=== PATIENT | female | born 1995 ===

== ENCOUNTER 2016-09-28 11:38 | Emergency (ER) | payer OTHER, MEDICAID ==
[2016-09-28 11:43] VITALS: RESP 16
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
[2016-09-28 13:24] VITALS: BP 108/65; PULSE 80; TEMP 98.2
[2016-09-28 13:33] VITALS: O2SAT 100
--- NOTE | 2016-09-28 14:21 | RAD ---
Right ankle three views History: Pain and trauma. Comparison: None available. Findings: No evidence for acute displaced fracture or dislocation. Ankle mortise maintained. Talar dome intact. No significant soft tissue swelling. Impression: Negative acute. If pain persists, consider MRI.
== END 2016-09-28 13:24 | disposition home or self-care (01) ==
LOC: C.ER 11:38
DX: S93.401A Sprain of unspecified ligament of right ankle, initial encounter (principal); V03.10XA Pedestrian on foot injured in collision with car, pick-up truck or van in traffic accident, initial encounter; Y92.410 Unspecified street and highway as the place of occurrence of the external cause

== ENCOUNTER 2017-12-28 14:04 | Emergency (ER) | payer MEDICAID ==
[2017-12-28 14:13] VITALS: BMI 18.7
[2017-12-28 14:27] VITALS: BP 101/68; PULSE 90; RESP 18; TEMP 97.7; O2SAT 98
--- NOTE | 2017-12-28 14:42 | C.PDOC ---
History Of Present Illness 22 year old female presents to the ED c/o body aches, throat pain and fever for the past 3 days. Patient states she has been taking DayQuil, last time she took it was today at noon. Patient denies nausea, vomit, diarrhea, rash, recent travel, sick contacts. Time Seen by Provider: 12/28/17 14:21 Chief Complaint (Nursing): Flu-like Symptoms History Per: Patient History/Exam Limitations: no limitations Onset/Duration Of Symptoms: Days (3) Current Symptoms Are (Timing): Still Present Location Of Pain: Throat, Diffuse Myalgias Sick Contacts (Context): None Associated Symptoms: Fever, Sore Throat, Myalgias Ear Symptoms: Bilateral: None Recent travel outside of the [place]: No Additional History Per: Patient Past Medical History Reviewed: Historical Data, Nursing Documentation, Vital Signs Vital Signs: Last Vital Signs Temp 97.7 F 12/28/17 14:13 Pulse 90 12/28/17 14:13 Resp 18 12/28/17 14:13 BP 101/68 12/28/17 14:13 Pulse Ox 98 12/28/17 14:41 - Medical History PMH: No Chronic Diseases Surgical History: No Surg Hx Family History: States: Unknown Family Hx - Social History Hx Alcohol Use: No Hx Substance Use: No - Immunization History Hx Tetanus Toxoid Vaccination: No Hx Influenza Vaccination: No Hx Pneumococcal Vaccination: No Review Of Systems Constitutional: Positive for: Fever. Negative for: Chills Eyes: Negative for: Vision Change ENT: Positive for: Throat Pain. Negative for: Nose Discharge, Nose Congestion Cardiovascular: Negative for: Chest Pain Respiratory: Negative for: Cough, Shortness of Breath Gastrointestinal: Negative for: Nausea, Vomiting, Abdominal Pain Skin: Negative for: Rash Neurological: Negative for: Weakness, Numbness Physical Exam - Physical Exam Appears: Non-toxic, No Acute Distress Skin: Normal Color, Warm, Dry Head: Atraumatic, Normacephalic Eye(s): bilateral: Normal Inspection Ear(s): Bilateral: Normal Oral Mucosa: Moist Throat: Erythema, Exudate Neck: Normal ROM, Supple, Other (submandibular nodes) Chest: Symmetrical Cardiovascular: Rhythm Regular, No Murmur Respiratory: Normal Breath Sounds, No Rales, No Rhonchi, No Wheezing Extremity: Normal ROM, No Tenderness, No Swelling Neurological/Psych: Oriented x3, Normal Speech Gait: Steady ED Course And Treatment O2 Sat by Pulse Oximetry: 98 (ON RA) Pulse Ox Interpretation: Normal Disposition Counseled Patient/Family Regarding: Diagnosis, Need For Followup, Rx Given - Disposition Referrals: [facility] [Outside] [facility] [Outside] Disposition: HOME/ ROUTINE Disposition Time: 14:40 Condition: GOOD Prescriptions: Amoxicillin [Amoxil 500 mg Cap] 500 mg PO BID #20 cap Ibuprofen [Motrin] 400 mg PO QID #30 tab Instructions: Sore Throat, Adult (DC) Forms: [employer] (Icelandic), Work Excuse - Clinical Impression Clinical Impression: Acute pharyngitis - Scribe Statement The provider has reviewed the documentation as recorded by the Scribe Tu Gong All medical record entries made by the Scribe were at my direction and personally dictated by me. I have reviewed the chart and agree that the record accurately reflects my personal performance of the history, physical exam, medical decision making, and the department course for this patient. I have also personally directed, reviewed, and agree with the discharge instructions and disposition.
== END 2017-12-28 14:56 | disposition home or self-care (01) ==
LOC: C.ER 14:04
DX: J02.9 Acute pharyngitis, unspecified (principal)

== ENCOUNTER 2018-03-24 00:36 | Emergency (ER) | payer SELFPAY ==
[2018-03-24 00:36] VITALS: BMI 18.7
[2018-03-24 00:56] VITALS: BP 105/67; PULSE 81; RESP 20; TEMP 98.2; O2SAT 100
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
== END 2018-03-24 01:42 | disposition home or self-care (01) ==
LOC: C.ER 00:36
DX: S09.90XA Unspecified injury of head, initial encounter (principal); W22.8XXA Striking against or struck by other objects, initial encounter; Y92.89 Other specified places as the place of occurrence of the external cause; Y99.0 Civilian activity done for income or pay

== ENCOUNTER 2018-07-08 11:28 | Emergency (ER) | payer OTHER ==
[2018-07-08 11:37] VITALS: BMI 21.4
[2018-07-08 11:43] VITALS: BP 110/72; PULSE 73; RESP 16; TEMP 97.6; O2SAT 100
--- NOTE | 2018-07-08 12:00 | C.PDOC ---
History Of Present Illness This is a 22 year old female with no significant past medical history who presents for vaginal discharge and lower abdominal pain x 1-2 weeks. She reports she started having this green-melissa vaginal discharge for the past 1-2 weeks, associated with pruritus, pain, and foul smelling. The patient has not tried anything over the counter for her symptoms. Patient reports she is sexually active with 1 partner for the past few months, without any protection. Her last LMP was 06/25/18, which she regularly every month. Her partner is asymptomatic. Patient reports this is the first time this has happened to her. No prior STD testing. No prior pap smears. Time Seen by Provider: 07/08/18 11:35 Chief Complaint (Nursing): Abdominal Pain History Per: Patient History/Exam Limitations: no limitations Onset/Duration Of Symptoms: Days, Gradual Current Symptoms Are (Timing): Still Present Severity: Mild Pain Scale Rating Of: 3 Location Of Pain/Discomfort: LUQ, LLQ Radiation Of Pain To:: None Quality Of Discomfort: Cramping Associated Symptoms: Nausea Last Bowel Movement: Yesterday Abnormal Vaginal Bleeding: No Last Menstral Period: 06/25/18 Past Medical History Vital Signs: Last Vital Signs Temp 97.6 F 07/08/18 11:38 Pulse 73 07/08/18 11:38 Resp 16 07/08/18 11:38 BP 110/72 07/08/18 11:38 Pulse Ox 100 07/08/18 11:38 - Medical History PMH: No Chronic Diseases Surgical History: No Surg Hx Family History: States: Unknown Family Hx - Social History Hx Tobacco Use: No Hx Alcohol Use: Yes Hx Substance Use: No - Immunization History Hx Tetanus Toxoid Vaccination: No Hx Influenza Vaccination: No Hx Pneumococcal Vaccination: No Review Of Systems Constitutional: Negative for: Fever, Chills, Weakness Gastrointestinal: Positive for: Nausea, Abdominal Pain. Negative for: Vomiting, Diarrhea, Constipation Genitourinary: Positive for: Vaginal Discharge, Pelvic Pain. Negative for: Dysuria, Hematuria, Vaginal Bleeding Neurological: Negative for: Weakness, Numbness Physical Exam - Physical Exam Appears: Well, Non-toxic, No Acute Distress Skin: Normal Color, Warm, Dry Head: Atraumatic, Normacephalic Cardiovascular: Rhythm Regular Respiratory: Normal Breath Sounds Gastrointestinal/Abdominal: Normal Exam, Bowel Sounds, Soft, No Tenderness, No Organomegaly, No Mass, No Distention Pelvic: Vaginal Discharge (thin, yellow greenish discharge ), No Cervical Motion Tenderness, No Adnexal Tenderness Neurological/Psych: Oriented x3, Normal Speech, Normal Cognition ED Course And Treatment O2 Sat by Pulse Oximetry: 100 Medical Decision Making Medical Decision Making: BV/ Trichomonas, GC/ Ch - UA, POC- negative, GC/ Ch - Will empiracally treat patient for GC/ Ch - Thin, yellow/green discharge noted on pelvic exam, most likely BV - will treat accordingly Disposition Doctor Will See Patient In The: Office Counseled Patient/Family Regarding: Studies Performed, Diagnosis, Need For Followup, Rx Given - Disposition Disposition: HOME/ ROUTINE Disposition Time: 13:00 Condition: GOOD Additional Instructions: Please follow up with your primary care physician within 1-2 weeks. Please call the ED next week [phone] for the results of your STD testing. If the results are positive, you have already been treated, BUT this means your partner HAS TO BE SEEN, TESTED AND TREATED. Please refrain from any sexual activities, until your partner is tested. Please also always use a condom to prevent any STDs. Please take care and be well. Prescriptions: metroNIDAZOLE [Flagyl] 500 mg PO BID #14 tab Instructions: Bacterial Vaginosis (DC), Sexually Transmitted Diseases in Adolescents (ED) Forms: [employer] (Danish) - POA Present On Arrival: None - Clinical Impression Clinical Impression: Bacterial vaginosis, STD (sexually transmitted disease)
[2018-07-08] MEDS ORDERED: cefTRIAXone (Rocephin) 250 mg Inj IM STA (12:29)
[2018-07-08 13:01] LABS: SQUAMOUS EPITHIAL 10 /hpf (0-5); URINE BACTERIA OCC (<OCC); URINE BILIRUBIN NEGATIVE (NEGATIVE); URINE BLOOD NEGATIVE (NEGATIVE); URINE CLARITY Hazy (Clear); URINE COLOR Yellow (YELLOW); URINE GLUCOSE (UA) NORMAL (Normal); URINE LEUKOCYTE ESTERASE 1+ Leu/uL (Negative); URINE PROTEIN NEGATIVE (NEGATIVE); URINE UROBILINOGEN NORMAL mg/dL (0.2-1.0)
== END 2018-07-08 13:10 | disposition home or self-care (01) ==
LOC: C.ER 11:28
DX: N76.0 Acute vaginitis (principal); A64 Unspecified sexually transmitted disease
CPT/HCPCS: 81001; 84703; 87491; 87591; 96372; 99284; J0696

== ENCOUNTER 2018-09-08 12:42 | Emergency (ER) | payer OTHER ==
[2018-09-08 12:42] VITALS: BMI 21.4
[2018-09-08 12:47] VITALS: O2SAT 100
[2018-09-08 13:47] LABS: SQUAMOUS EPITHIAL 18 /hpf (0-5); URINE BACTERIA RARE (<OCC); URINE BILIRUBIN NEGATIVE (NEGATIVE); URINE BLOOD NEGATIVE (NEGATIVE); URINE CLARITY Hazy (Clear); URINE COLOR Yellow (YELLOW); URINE GLUCOSE (UA) NORMAL (Normal); URINE LEUKOCYTE ESTERASE 1+ Leu/uL (Negative); URINE PROTEIN NEGATIVE (NEGATIVE); URINE UROBILINOGEN NORMAL mg/dL (0.2-1.0)
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
[2018-09-08 16:40] VITALS: BP 99/64; PULSE 86; RESP 20; TEMP 97.9
== END 2018-09-08 16:40 | disposition home or self-care (01) ==
LOC: C.ER 12:42
DX: O21.9 Vomiting of pregnancy, unspecified (principal); Z3A.00 Weeks of gestation of pregnancy not specified